=== PATIENT | male | born 1990 | race Caucasian/White ===

== ENCOUNTER 2017-01-14 15:25 | Emergency (ER) | payer OTHER ==
[~2017-01-14] VITALS: Ht 175.3 cm; Wt 74.8 kg
[2017-01-14] MEDS: SUMAtriptan 50 MG (IMITREX) TAB PO ONE (16:15)
[2017-01-14] MEDS ORDERED: SMTR50T PO (16:19)
--- NOTE | 2017-01-14 16:19 | ED Headache ---
General Chief Complaint: General Problems/Pain Stated Complaint: MIGRAINE Source: patient Exam Limitations: no limitations History of Present Illness Time seen by provider: 16:15 Initial Comments To ER with complaints of a migraine aura. He states that he gets migraines about every 3-4 months and they are typically preceded by an aura that includes a blind spot that is off to his right but when looking at it he can never find it. He states that this blind spot appears to move. He also has some tingling on the volar side of his left forearm that typically coincides with this visual disturbance preceding a migraine. This aura started for him today at about 310 p.m. and usually it lasts for about 30 minutes before progressing to a migraine. However, his aura seems to have subsided and he does not have a migraine but he is concerned that he may get a migraine. Severity/Quality: moderate Allergies and Home Medications Allergies Coded Allergies: No Known Drug Allergies (Unverified , 01/14/17) Constitutional: see HPI Eyes: No Symptoms Reported Ears, Nose, Mouth, Throat: no symptoms reported Respiratory: no symptoms reported Cardiovascular: no symptoms reported Genitourinary: no symptoms reported Musculoskeletal: no symptoms reported Skin: no symptoms reported Psychiatric/Neurological: No Symptoms Reported Past Giphduk-Ajqyyv-Pgcoce Hx Patient Social History Alcohol Use: Denies Use Recreational Drug Use: No Smoking Status: Never a Smoker 2nd Hand Smoke Exposure: No Recent Foreign Travel: No Contact w/Someone Who Travel: No Recent Hopitalizations: No Physical Abuse: No Sexual Abuse: No Seasonal Allergies Seasonal Allergies: No Surgeries History of Surgeries: No Psychosocial Suicide Risk Score: 0 Physical Exam Vital Signs Capillary Refill : General Appearance: WD/WN, no apparent distress HEENT: PERRL/EOMI, normal ENT inspection Neck: non-tender, full range of motion Respiratory: no respiratory distress, no accessory muscle use Gastrointestinal: normal bowel sounds, non tender Extremities: normal range of motion, non-tender Crainal Nerves: normal hearing, normal speech, PERRL Skin: normal color, warm/dry Progress/Results/Core Measures Results/Orders My Orders Orders - REX FALL APRN Sumatriptan Tablet (Imitrex Tablet) (01/14/17 16:15) Departure Impression Impression: Primary Impression: Migraine aura without headache Disposition: 01 HOME, SELF-CARE Condition: Stable Departure-Patient Inst. Decision time for Depature: 16:17 Referrals: NO,LOCAL PHYSICIAN (PCP) Primary Care Physician Patient Instructions: NO INSTRUCTIONS GIVEN Add. Discharge Instructions: 1. Return to ER for any concerns 2. Follow-up with your regular doctor 3. All discharge instructions reviewed with patient and/or family. Voiced understanding. Scripts Sumatriptan Succinate (Imitrex) 50 Mg Tab 50 MG PO Q8H Y for migraine, #5 TAB Take at the onset of headache Prov: REX FALL APRN 01/14/17 REX FALL APRN Jan 14, 2017 16:19
[2017-01-14 16:39] VITALS: BP 122/70
== END 2017-01-14 16:39 | disposition home or self-care (01) ==
LOC: ER 15:27
DX: G43.109 Migraine with aura, not intractable, without status migrainosus (principal)
CPT/HCPCS: 99283

== ENCOUNTER 2017-05-13 13:00 | Outpatient (CLI) | payer OTHER ==
[~2017-05-13] VITALS: Ht 175.3 cm; Wt 74.8 kg
[~2017-05-13 13:00] MED LIST: SMTR50T PO
== END 2017-05-13 13:48 ==
LOC: PREOP 13:00
PROVIDERS: ATTEND Surgery
DX: Z01.818 Encounter for other preprocedural examination (principal); K92.1 Melena

== ENCOUNTER 2022-02-12 05:33 | Outpatient (CLI) | payer OTHER ==
[~2022-02-12] VITALS: Ht 180.3 cm; Wt 84.9 kg
== END 2022-02-12 13:03 | disposition home or self-care (01) ==
LOC: PREOP 05:33
PROVIDERS: ATTEND Surgery
DX: Z01.818 Encounter for other preprocedural examination (principal)

== ENCOUNTER 2022-02-19 07:24 | Day surgery (SDC) | payer OTHER ==
[2022-02-19] VITALS (9 sets, daily range): BP systolic 120–150; BP diastolic 75–98
[~2022-02-19] VITALS: Ht 180.3 cm; Wt 84.9 kg
[2022-02-19] MEDS ORDERED: ceFAZolin INJECTION 2,000 MG in NS (IVPB) 50 ML IV ONE (08:00)
[2022-02-19] MEDS: LACTATED RINGERS 1,000 ML IV PRN ×2 (08:04→09:40)
[2022-02-19] MEDS ORDERED: BUP/EPI 0.5% 1:200,000 (MARCAINE) 10ML VIAL IJ ONE ×2 (08:06→09:35)
--- NOTE | 2022-02-19 08:24 | Progress Note-Pre Operative ---
Pre-Operative Progress Note Date of Available H&P: Feb 06, 2022 Date H&P Reviewed: Feb 19, 2022 Time H&P Reviewed: 08:24 History & Physical: H&P Reviewed, Patient Examed, No changes noted Pre-Operative Diagnosis: right inguinal hernia ANASTASIA GONZALEZ DO Feb 19, 2022 08:24
[2022-02-19] MEDS ORDERED: proPOfol 200 MG/20 ML (DIPRIVAN) VIAL IV ONE (08:59)
[2022-02-19] MEDS ORDERED: LIDOCAINE PF 2% 5 ML (XYLOCAINE) VIAL ONE (08:59)
[2022-02-19] MEDS ORDERED: fentaNYL INJ 100 MCG/2 ML AMP ONE (08:59)
[2022-02-19] MEDS ORDERED: ROCURONIUM 10 MG/ML 5 ML SYRINGE IV ONE ×2 (08:59→10:50)
[2022-02-19] MEDS ORDERED: MIDAZOLAM 2 MG/2 ML (VERSED) VIAL ONE (08:59)
[2022-02-19] MEDS ORDERED: ONDANSETRON 4 MG/2 ML (SDV) Z0FRAN ONE (08:59)
[2022-02-19] MEDS ORDERED: SEVOFLURANE (ULTANE) 15 ML INHAL SOLN ONE ×2 (08:59→10:58)
[2022-02-19] MEDS ORDERED: HYDROmorphone 2 MG/ML VIAL (DILAUDID) ONE (09:35)
[2022-02-19] MEDS ORDERED: KETOROLAC 30 MG/ML VIAL ONE (10:58)
[2022-02-19] MEDS ORDERED: GLYCOPYRROLATE 0.2 MG/ML (ROBINUL) 2 ML VIAL ONE (10:59)
[2022-02-19] MEDS ORDERED: NEOSTIGMINE (BLOXIVERZ ) 1 MG/1ML 10 ML VIAL ONE (10:59)
[2022-02-19] MEDS ORDERED: HYDROmorphone 2 MG/ML VIAL (DILAUDID) IV ONE (11:15)
[2022-02-19] MEDS ORDERED: ONDANSETRON 4 MG/2 ML (SDV) Z0FRAN IVP PRN (11:15)
[2022-02-19] MEDS ORDERED: DOCU-143 PO (11:57)
[2022-02-19] MEDS ORDERED: ACHD5005 PO (11:57)
--- NOTE | 2022-02-19 11:59 | Discharge Inst-Simple/Standard ---
Discharge Inst-Standard Discharge Medications New, Converted or Re-Newed RX: Transmitted to Pharmacy Patient Instructions/Follow Up Plan of Care/Instructions/FU: 2 weeks rex Activity as Tolerated: No Discharge Diet: Regular Diet Other Inst to Patient Follow up Appt: Make appointment for 2 week. Instructions: No lifting greater than 10 pounds. No strenuous activity. May shower in 24 hours, no tub bath or soaking. Use incentive spirometer at home as directed. No Smoking Skin/Wound Care: You have special glue over your incision that will fall off on it's own. Symptoms to Report: Appetite Changes, Extremity Discoloration, Numbness/Tingling, Swelling Increased, Bleeding Excessive, Eyesight Changes, Pain Increased, Urine Color Change, Constipation(Persistent), Fever over 101 degree F, Pain/Pressure in chest, Urinating Difficulty, Cough Up/Vomit Blood, Heart Beat Irreg/Pounding, Pain/Pressure in jaw, Vaginal Bleeding Increase, Cramps in feet or legs, Lightheadedness, Pain/Pressure in shoulder, Diarrhea(Persistent), Memory Changes Suddenly, Questions/Concerns, Weight gain consecutive days, Dizziness/Fainting, Nausea/Vomiting, Shortness of Breath, Weight gain over 2 pounds If questions or concerns contact your physician Or seek help at emergency department. ANASTASIA GONZALEZ DO Feb 19, 2022 11:59
--- NOTE | 2022-02-19 12:03 | Progress Note-Post Operative ---
Post-Operative Progess Note Surgeon (s)/Vice President Of News (s) Surgeon ANASTASIA GONZALEZ DO Vice President Of News: Dr. Chappell to assist in retraction dissection and closure. Pre-Operative Diagnosis right inguinal hernia Post-Operative Diagnosis indirect right inguinal hernia. Procedure & Operative Findings Date of Procedure 02/19/22 Procedure Performed/Findings After informed consent was obtained, the patient was brought to the operating room and placed on the operating table in a supine position. He was sterilely prepped and draped in a normal fashion. Local lidocaine was used to infiltrate the skin above the umbilicus. I made an incision with #11 blade, carried down to the skin into subcutaneous tissue and then deepened down the subcutaneous tissue with Bovie electrocautery down to the fascia. Fascia was incised with Bovie electrocautery and bluntly entered the abdomen, swept a finger around, placed 0 Vicryl [id number] suture and placed limited trocar port under direct visualization. Created pneumoperitoneum, able to visualize the hernia and took a picture of this and then placed two 8 mm ports about 10 cm on either side of the midline port using a local lidocaine, 11 blade for stab incision and then advanced the robotic port under direct visualization. Once this was in, I then placed the patient in Trendelenburg and then placed the working instruments, the fenestrated bipolar and the scissors. Looked on the left side and no signs of inguinal hernia. I could see a indirect hernia defect on the right side. Next, I came across the peritoneum approximately 8 cm away from the hernia defect, going across laterally starting lateral about 17cm and cutting toward the median umbilical ligament. I then carefully dissected the visceral peritoneum away and down and then in the midline, went through the parietal side and dissected down to the pubic tubercle, dissecting this down carefully pushing the peritoneum away, I was able to then visualize the pubic tubercle and Fabien's ligament. I went 2 cm posterior and at this point, we then had a critical view of the dissection, able to dissect 2 cm across the midline to the right side, 2 cm posterior to the Fabien's ligament, able to then parietalize the vas deferens and spermatic vessels right at the groove between Fabien's and iliac vein and able to dissect, make sure there was no peritoneum between those two, able to see the indirect hernia space, took a picture of this, looked at the femoral space (no hernia seen). Then I carefully teased out the hernia sac and could visualize the indirect hernia space. Next I looked on the cord and cord structures. I could clearly see the inguinal canal and the indirect space. Next I carried the posterior lateral dissection all the way out and then placed a 12 x 17 Midwieght Bard 3DMax mesh. It laid in nicely, covered the hernia defect and the rest of the area. It was above the peritoneum, sutured it at the pubic tubercle and laterally with a 3-0 Vicryl suture and tied this off. This appeared to lay in very nicely. I then brought down the pneumoperitoneum to about 8 mmHg and then started closing the peritoneum. Started laterally and used a 2-0 V-lock barbed suture to start a running stitch to close the peritoneum. This was closed nicely, took a picture of the closure at this point, then removed both needles had switched to a suture bobtail driver from the scissors. The patient was then placed back supine, removed all ports under direct visualization, allowed pneumoperitoneum to escape and then closed the supraumbilical incision, closing the fascia with 0 Vicryl suture previously placed. Copiously irrigated all incisions and then closed the two small 8 mm incisions with two interrupted 4-0 undyed Monocryl subcuticular stitches and closed the supraumbilical incision with three interrupted undyed Monocryl subcuticular stitch. Area was cleaned and dried. Dermabond was placed. The patient tolerated the procedure. The sponge, instrument and needle counts were correct at the end of the case. Dr. Chappell assisted during this surgery by making incisions, closing incisions, helping to identify anatomy and passing/retrieving suture and needles. Anesthesia Type general Estimated Blood Loss Estimated blood loss (mL): minimal Specimens/Packing Specimens Removed ANASTASIA Carpio DO Feb 19, 2022 12:03
--- NOTE | 2022-02-19 15:43 | Anesthesia-General Post-Op ---
General Patient Condition Mental Status/LOC: Same as Preop Cardiovascular: Satisfactory Nausea/Vomiting: Absent Respiratory: Satisfactory Pain: Controlled Complications: Absent Post Op Complications Complications None Follow Up Care/Instructions Patient Instructions None needed. Anesthesia/Patient Condition Patient Condition Patient is doing well, no complaints, stable vital signs, no apparent adverse anesthesia problems. No complications reported per nursing. D/C home per [facility] Criteria: Yes RANDELL MARQUEZ CRNA Feb 19, 2022 15:43
== END 2022-02-19 13:25 | disposition home or self-care (01) ==
LOC: SDC 07:24
PROVIDERS: ATTEND Surgery
DX: K40.90 Unilateral inguinal hernia, without obstruction or gangrene, not specified as recurrent (principal); F17.210 Nicotine dependence, cigarettes, uncomplicated
CPT/HCPCS: 49650; 87081; 94664; C1781

== ENCOUNTER → 2023-01-01 | Outpatient (CLI) | payer OTHER ==
[~2023-01-01] MED LIST changes: +ACHD5005 PO; +DOCU-143 PO
--- NOTE | 2023-01-01 11:21 | Diagnostic Imaging Report ---
PROCEDURE: CT head without contrast. TECHNIQUE: Multiple contiguous axial images were obtained through the brain without the use of intravenous contrast. Auto Exposure Controls were utilized during the CT exam to meet ALARA standards for radiation dose reduction. INDICATION: Migraine headache and seeing a blind spot for five months. No prior studies are available for comparison. FINDINGS: There is a large mass located anterior midline, likely arising from the floor of the anterior cranial fossa. This measures approximately 4.2 cm cephalocaudal x 6.0 cm AP x 5.3 cm transverse. There are numerous calcifications within the mass. 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 MRI would be recommended for further evaluation. There is no midline shift. No acute intra-axial or extra-axial hemorrhage is detected. Cisterns are patent. The visualized paranasal sinuses are within normal limits. No definite bony destructive changes are seen. IMPRESSION: Large partially calcified mass midline anterior cranial fossa. 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 Further evaluation with MRI of the brain with and without contrast would be recommended for better characterization. Dictated by: Dictated on workstation # [id number]
--- NOTE | 2023-01-01 11:31 | Diagnostic Imaging Report ---
PROCEDURE: CT orbit without contrast. TECHNIQUE: Multiple contiguous axial images were obtained through the facial bones without the use of intravenous contrast. Auto Exposure Controls were utilized during the CT exam to meet ALARA standards for radiation dose reduction. INDICATION: Visual disturbance, central scotoma for five months. FINDINGS: Orbital CT reveals normal appearance of the globes. Optic nerves are also unremarkable and there is no evidence of intraocular muscle lesion. There is no evidence of bony abnormality or paranasal sinus air-fluid level. Within the calvarial vault, there is suggestion of midline mass with speckled calcification which may distort the genu of corpus callosum and the right frontal horn. This likely also results in distortion of the optic chiasm. IMPRESSION: No orbital abnormality identified, however there is a central partially calcified mass in the calvarium. 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 This likely has mass effect upon the optic chiasm and could be further characterized with contrast-enhanced MRI. Dictated by: Dictated on workstation # [id number]
== END ==
LOC: RAD 10:55
PROVIDERS: ATTEND Optometrist
DX: H53.411 Scotoma involving central area, right eye (principal); G43.801 Other migraine, not intractable, with status migrainosus
CPT/HCPCS: 70450; 70480